=== PATIENT | female | born 1975 | race African-American/Black ===

== ENCOUNTER 2019-09-06 07:54 | Inpatient (IN) | payer BC ==
[2019-09-05 12:13] VITALS: BMI 35.6
[2019-09-06] MEDS ORDERED: BUPIVACAINE LIPOSOME/PF (EXPAREL) 266 MG/20 ML VIAL ONE (08:53)
[2019-09-06] MEDS ORDERED: BUPIVACAINE HCL/PF 0.25% (2.5MG/ML) 10 ML VIAL ONE (08:54)
--- NOTE | 2019-09-06 09:56 | HP ---
History & Physical Update - History History: No Change - Physical Physical: No Change - Assessment Assessment: No Change - Plan Plan: No Change (Consent signed and witnessed)
--- NOTE | 2019-09-06 09:56 | OP ---
Operative Note - Note: Operative Date: 09/06/19 Pre-Operative Diagnosis: 43yo P1 with large fibroid uterus, pain, anemia Operation: Supracervical hysterectomy, Bilateral salpingectomy Findings: 16cm large, wide fibroid uterus Post-Operative Diagnosis: Same as Pre-op Surgeon: Mirtha Bishop Toaster Operator: Guillaume Sandhu Anesthesiologist/HARVESTING MANAGER: Taryn So Anesthesia: General Specimens Removed: Uterine fundus, bilateral tubes Estimated Blood Loss (mls): 150 Drains, Volume Out (mls): 250 Fluid Volume Replaced (mls): 1,100 Operative Report Dictated: Yes
[2019-09-06] MEDS ORDERED: MIDAZOLAM HCL 2 MG/2 ML SINGLE DOSE VIAL ONE ×2 (10:14→10:16)
[2019-09-06] MEDS ORDERED: LIDOCAINE HCL/PF 2% SDV 5ML VIAL ONE (10:22)
[2019-09-06] MEDS ORDERED: SODIUM CHLORIDE 0.9% P/F 10 ML VIAL IJ ONE (10:22)
[2019-09-06] MEDS ORDERED: ceFAZolin SODIUM 1 GM VIAL ONE (10:22)
[2019-09-06] MEDS ORDERED: ROCURONIUM BROMIDE 50 MG/5 ML SYRINGE ONE ×2 (10:23→12:07)
[2019-09-06] MEDS ORDERED: fentaNYL CITRATE 250 MCG/5 ML VIAL ONE (10:23)
[2019-09-06] MEDS ORDERED: PROPOFOL 20 ML ONE ×2 (10:23)
[2019-09-06] MEDS ORDERED: ceFAZolin SODIUM 1 GM VIAL IVPB ONE (11:21)
[2019-09-06] MEDS ORDERED: ACETAMINOPHEN INJECTION 100 ML IVPB ONE (11:36)
[2019-09-06] MEDS ORDERED: HYDROmorphone HCl 2 MG/ML VIAL ONE (11:37)
[2019-09-06] MEDS ORDERED: GLYCOPYRROLATE 0.2 MG/1 ML VIAL ONE (11:40)
[2019-09-06] MEDS ORDERED: NEOSTIGMINE METHYLSULFATE 0.5 MG/ML - 10 ML MDV ONE (11:40)
[2019-09-06] MEDS ORDERED: ONDANSETRON 4 MG/2 ML VIAL IVPUSH PRN ×2 (11:50→13:17)
[2019-09-06] MEDS ORDERED: HYDROmorphone HCl 2 MG/ML VIAL IVPUSH PRN (11:51)
[2019-09-06] MEDS ORDERED: LACTATED RINGERS SOLUTION 1,000 ML IV SCH (12:00)
[2019-09-06] MEDS ORDERED: IBUPROFEN 800 MG/8 ML IJ IVPB PRN (13:17)
[2019-09-06] MEDS ORDERED: oxyCODONE HCL 5 MG TABLET PO PRN (13:17)
[2019-09-06] MEDS ORDERED: IBUPROFEN 600 MG TABLET (FP) PO PRN (13:17)
[2019-09-06] MEDS ORDERED: ENOXAPARIN NA (PORCINE) 40 MG/0.4 ML DISP.SYRIN SQ ONE (13:20)
[2019-09-06] MEDS ORDERED: ELECTROLYTE-148 SOLN 1,000 ML IV SCH (13:30)
[2019-09-06] MEDS: HYDROmorphone HCl 2 MG/ML VIAL IVPUSH PRN ×2 (13:52→14:08)
[2019-09-06] MEDS: CEFAZOLIN 2 GM/D5W 2 GM/50 ML ML IVPB SCH (18:13)
[2019-09-07] MEDS: CEFAZOLIN 2 GM/D5W 2 GM/50 ML ML IVPB SCH (01:27)
[2019-09-07 07:58] LABS: HEMATOCRIT 32.6 % (32.4-45.2); HEMOGLOBIN 10.2 GM/dL (10.7-15.3); MCH 26.7 pg (25.7-33.7); MCHC 31.3 g/dl (32.0-36.0); MEAN CELL VOLUME 85.3 fl (80-96); MEAN PLT VOLUME 8.7 fl (7.5-11.1); PLATELET COUNT 310 K/MM3 (134-434); RBC 3.82 M/mm3 (3.60-5.2); RDW 20.5 % (11.6-15.6); WHITE BLOOD COUNT 14.5 K/mm3 (4.0-10.0)
--- NOTE | 2019-09-07 08:50 | PN ---
Progress Note, Physician - Current Medication List Current Medications: Active Medications Hydromorphone HCl (Dilaudid Vial -) 0.25 mg IVPUSH [id number] PRN PRN Reason: PAIN LEVEL 4 - 6 Last Admin: 09/06/19 14:08 Dose: 0.25 mg Documented by: Hydromorphone HCl (Dilaudid Vial -) 0.5 mg IVPUSH [id number] PRN PRN Reason: PAIN LEVEL 7 - 10 Lactated Ringer's (Lactated Ringers Solution) 1,000 mls @ 75 mls/hr IV ASDIR NIMA Parenteral Electrolytes (Plasma-Lyte 148 -) 1,000 mls @ 125 mls/hr IV ASDIR NIMA Ibuprofen (Caldolor Injection -) 800 mg IVPB Q6H PRN PRN Reason: Fever - If PO not effective. Last Admin: 09/06/19 21:52 Dose: 800 mg Documented by: Ibuprofen (Motrin -) 600 mg PO Q6H PRN PRN Reason: FEVER Ondansetron HCl (Zofran Injection) 4 mg IVPUSH Q6H PRN PRN Reason: NAUSEA AND/OR VOMITING Ondansetron HCl (Zofran Injection) 4 mg IVPUSH Q6H PRN PRN Reason: NAUSEA Oxycodone HCl (Roxicodone -) 5 mg PO Q4H PRN PRN Reason: PAIN LEVEL 7 - 10 Stop: 09/08/19 12:00 - Objective Vital Signs: Vital Signs Temperature 99 F 09/07/19 05:47 Pulse Rate 84 09/07/19 05:47 Respiratory Rate 18 09/07/19 05:47 Blood Pressure 119/69 09/07/19 05:47 O2 Sat by Pulse Oximetry (%) 98 09/07/19 05:47 Labs: CBC, BMP 09/07/19 07:38
--- NOTE | 2019-09-08 08:23 | DS ---
Physical Examination Vital Signs: Vital Signs Temperature 98.4 F 09/07/19 22:00 Pulse Rate 81 09/07/19 22:00 Respiratory Rate 18 09/07/19 22:00 Blood Pressure 138/72 09/07/19 22:00 O2 Sat by Pulse Oximetry (%) 98 09/07/19 05:47 Constitutional: Yes: Well Nourished, No Distress Eyes: Yes: WNL, EOM Intact HENT: Yes: WNL Neck: Yes: WNL Cardiovascular: Yes: WNL Respiratory: Yes: WNL Gastrointestinal: Yes: WNL, Normal Bowel Sounds Renal/: Yes: WNL Breast(s): Yes: WNL Musculoskeletal: Yes: WNL Extremities: Yes: WNL Integumentary: Yes: WNL Wound/Incision: Yes: Clean/Dry, Well Approximated Neurological: Yes: WNL, Alert, Oriented ...Motor Strength: WNL Psychiatric: Yes: WNL, Alert, Oriented Labs: CBC, BMP 09/07/19 07:38 Discharge Summary Problems reviewed: Yes Reason For Visit: MENORRHAGIA Condition: Good - Instructions Referrals: Mirtha Bishop MD [Staff Physician] - Disposition: HOME - Home Medications Comprehensive Discharge Medication List: Ambulatory Orders [facility] Infusion 1 each IV WEEKLY 09/05/19
[2019-09-08] MEDS ORDERED: BISACODYL 10 MG SUPP.RECT PR ONE (08:45)
[2019-09-08 12:11] VITALS: BP 130/83; PULSE 83; TEMP 98.8
--- NOTE | 2019-09-08 17:30 | PATH ---
Surgical Pathology Report Patient Name: DANIAL RAE [facility]. Rec. #: [id number] /Age/Gender: 1975 (Age: 43) / F Account: [id number] Location: [facility] OBS/WOMEN NURSE Taken: 09/06/2019 Received: 09/06/2019 Reported: 09/08/2019 Physicians: Mirtha Bishop M.D. Specimen(s) Received A: UTERUS B: RIGHT FALLOPIAN TUBE C: LEFT FALLOPIAN TUBE Clinical History Menorrhagia Final Diagnosis A. UTERUS, SUPRACERVICAL HYSTERECTOMY: LEIOMYOMATA WITH FOCAL HYALINIZATION. EXTENSIVE ADENOMYOSIS. SECRETORY TYPE ENDOMETRIUM. B. RIGHT FALLOPIAN TUBE, SALPINGECTOMY: PORTION OF FALLOPIAN TUBE WITH NO SIGNIFICANT PATHOLOGIC CHANGE. C. LEFT FALLOPIAN TUBE, SALPINGECTOMY: PORTION OF FALLOPIAN TUBE WITH PARATUBAL CYSTS. Electronically Signed Carlos Coulter M.D. Gross Description A. Received in formalin labeled "uterus" is a 758 g supracervically amputated uterus with no attached adnexa. The specimen measures 12.5 cm from anterior to posterior, 12 cm from superior to inferior and 12 cm from left to right. The serosa is luz-harrison with focal subserosal nodules. The endometrial cavity measures 10 cm in length and 3 cm from cornu to cornu. The endometrium is luz-red and lush, measuring up to 0.7 cm in thickness. The myometrium displays abundant intramural nodules, measuring up to 6.5 cm in greatest dimension. The cut surface of the nodules is luz and rubbery with whorled architecture. No areas of hemorrhage or necrosis are identified. The remaining myometrium is luz-pink and measures up to 6.3 cm in thickness. [employer] sections are submitted in 11 cassettes as follows: 1-cervical margin of resection; 9-4-bbxtojzzfutxko; 6-subserosal nodules; 5-0-fysgtaadts nodules; 9-01-nvdfgvz intramural nodule. B. Received in formalin labeled "right fallopian tube," is a 4.5 cm in length fimbriated fallopian tube. The outer surface is harrison purple and smooth. Sectioning reveals an unremarkable lumen. Manager Heavy Equipment sections are submitted in 2 cassettes as follows: 1-fimbria; 2-cross sections of fallopian tube C. Received in formalin labeled "left fallopian tube," is a 3.5 cm in length fimbriated fallopian tube. The outer surface is harrison purple with a 1.0 cm in greatest dimension paratubal cyst attached to the fimbria. Sectioning reveals an unremarkable lumen. Manager [employer] sections are submitted in 2 cassettes as follows: 1-fimbria with paratubal cyst; 2-cross sections of fallopian tube. 09/07/2019 [facility]09/07/2019
--- NOTE | 2019-09-13 11:46 | OP ---
DATE OF OPERATION: 09/06/2019 PREOPERATIVE DIAGNOSES: A 43-year-old para 1 with large fibroid uterus, pain, anemia. POSTOPERATIVE DIAGNOSES: A 43-year-old para 1 with large fibroid uterus, pain, anemia. OPERATION: Supracervical hysterectomy and bilateral salpingectomy. FINDINGS: A 16-cm, large, multi-fibroid uterus. SURGEON: Neli Bishop MD ACCOUNT SUPPORT MANAGER: Guillaume Sandhu MD ANESTHESIOLOGIST: Taryn So MD ANESTHESIA: General. SPECIMENS: Removed uterine fundus and bilateral tubes. DESCRIPTION OF THE OPERATIVE PROCEDURE: After assuring informed consent, patient was brought to the operating room where general anesthesia was administered. Patient was in supine position. The Heath catheter was placed sterilely after anesthesia. A Pfannenstiel skin incision was created with a scalpel and brought down to the level of fascia with Bovie cautery. Fascia was incised with Bovie cautery and extended bilaterally. The fascia was dissected off the rectus abdominis muscle with Bovie cautery, superiorly and inferiorly. Muscle was split in the midline and brought down to the pubic symphysis. The peritoneum was tented with Eleonora and entered sharply with Metzenbaum scissors with good visualization of underlying organs. Peritoneum was dissected superiorly, inferiorly, and uterus was exteriorized. The round ligaments were ligated with LigaSure bilaterally, and bladder flap was created, and bladder was retracted with the lower edge of the Cindi. The bilateral uterine arteries were skeletonized and clamped with Kee clamps, dissected, suture ligated with 0 Vicryl bilaterally. Excellent hemostasis was noted throughout. The second clamp bilaterally was created with Kee clamp to dissect the uterine artery further. Each side was suture ligated with 0 Vicryl. The bilateral ureters were significantly below all the clamping. Subsequently, the uteroovarian ligaments were entered and clamped bilaterally with Eleonora clamps, dissected off the uterine fundus. The bilateral fallopian tubes were dissected off of each pedicle, and the rest of the pedicle was tied and suture ligated with 0 Vicryl. Excellent hemostasis was noted. Uterus was dissected off the cervix, and cervical stump was oversewn with multiple 0 Vicryl sutures until cervical stump was fully hemostatic. The serosa was reapproximated to cover the cervical stump with 2-0 Vicryl. Abdomen was copiously irrigated, and all pedicles were found to be hemostatic. Peritoneum was repaired with 0 Vicryl. The muscle was reapproximated in the midline, and fascia was closed with 0 Vicryl with 2 sutures from each angle. The subcutaneous space was closed with 2-0 chromic in interrupted sutures to decrease the space, and the skin was reapproximated with 4-0 Monocryl. Lap, sponge, and instrument count was correct x2. Excellent hemostasis was found. Estimated blood loss 150 mL. Patient drained 250 mL of urine and received 1100 mL of IV fluids and was brought extubated to the recovery room. NELI BISHOP M.D. [id number]
== END 2019-09-08 13:00 | disposition home or self-care (01) | DRG 743 ==
LOC: J2C 07:54 → J3W 16:26
PROVIDERS: ADMIT Obstetrics & Gynecology; ATTEND Obstetrics & Gynecology
PROC: 0UT70ZZ Resection of Bilateral Fallopian Tubes, Open Approach (ICD-10-PCS; 2019-09-06)
PROC: 0UT90ZL Resection of Uterus, Supracervical, Open Approach (ICD-10-PCS; principal; 2019-09-06 10:00)
DX: D25.9 Leiomyoma of uterus, unspecified (principal); D64.9 Anemia, unspecified; N92.0 Excessive and frequent menstruation with regular cycle; N80.0 Endometriosis of uterus; N83.8 Other noninflammatory disorders of ovary, fallopian tube and broad ligament
CPT/HCPCS: 36415; 84703; 85027; 86705; 86850; 86900; 86901; 87340; 87522; 87536; 88302-TC; 88305-TC; 94760; J0131